=== PATIENT | male | born 1965 | race African-American/Black ===

== ENCOUNTER 2023-08-13 00:19 | Inpatient (IN) | payer BC ==
[2023-08-13 01:07] LABS: HEMATOCRIT 38.7 % (35.4-49); HEMOGLOBIN 13.2 GM/dL (11.7-16.9); MCH 30.1 pg (25.7-33.7); MCHC 34.1 g/dl (32.0-35.9); MEAN CELL VOLUME 88.3 fl (80-96); MEAN PLT VOLUME 7.4 fl (7.5-11.1); PLATELET COUNT 325 10^3/uL (134-434); RBC 4.39 M/mm3 (4.00-5.60); RDW 13.4 % (11.9-15.9); WHITE BLOOD COUNT 13.6 K/mm3 (4.0-10.0)
[2023-08-13 01:18] LABS: POTASSIUM 3.7 mmol/L (3.5-5.1)
[2023-08-13 01:19] LABS: CALCIUM 8.4 mg/dL (8.5-10.1)
[2023-08-13 01:20] LABS: ALBUMIN 3.1 g/dl (3.4-5.0); BLOOD UREA NITROGEN 17.6 mg/dL (7-18)
[2023-08-13 01:23] LABS: CREATININE 1.1 mg/dL (0.55-1.3)
[2023-08-13 01:25] LABS: BILIRUBIN,TOTAL 0.4 mg/dL (0.2-1)
[2023-08-13 02:48] LABS: INR 1.02 (0.83-1.09); PROTHROMBIN TIME (PATIENT) 11.5 SEC (9.7-13.0)
[2023-08-13 02:50] LABS: ACTIVATED PTT 28.1 SECONDS (25.2-36.5)
[2023-08-13] MEDS: SODIUM CHLORIDE 0.9% 500 ML INFUS.BAG IV ONE (03:51)
[2023-08-13 03:52] LABS: BASO % 0.2 % (0-2.0); HEMATOCRIT 33.6 % (35.4-49); HEMOGLOBIN 11.5 GM/dL (11.7-16.9); LYMPH % 16.9 % (8-40); MCH 30.2 pg (25.7-33.7); MCHC 34.3 g/dl (32.0-35.9); MEAN CELL VOLUME 88.2 fl (80-96); MEAN PLT VOLUME 7.4 fl (7.5-11.1); MONO % 6.3 % (3.8-10.2); NEUT % 76.6 % (42.8-82.8); PLATELET COUNT 273 10^3/uL (134-434); RBC 3.81 M/mm3 (4.00-5.60); RDW 13.4 % (11.9-15.9); WHITE BLOOD COUNT 13.7 K/mm3 (4.0-10.0)
[2023-08-13] MEDS ORDERED: PANTOPRAZOLE SODIUM 40 MG VIAL ONE (04:21)
[2023-08-13] MEDS: PANTOPRAZOLE SODIUM 40 MG VIAL IVPUSH ONE (04:29)
[2023-08-13 06:49] LABS: HEMATOCRIT 34.9 % (35.4-49); HEMOGLOBIN 12.1 GM/dL (11.7-16.9); MCH 30.4 pg (25.7-33.7); MCHC 34.6 g/dl (32.0-35.9); MEAN CELL VOLUME 87.9 fl (80-96); MEAN PLT VOLUME 7.5 fl (7.5-11.1); PLATELET COUNT 294 10^3/uL (134-434); RBC 3.97 M/mm3 (4.00-5.60); RDW 13.4 % (11.9-15.9); WHITE BLOOD COUNT 14.6 K/mm3 (4.0-10.0)
[2023-08-13 07:31] LABS: ALBUMIN 2.8 g/dl (3.4-5.0); BLOOD UREA NITROGEN 16.7 mg/dL (7-18); CALCIUM 7.9 mg/dL (8.5-10.1); MAGNESIUM 2.1 mg/dL (1.8-2.4)
[2023-08-13] MEDS: LACTATED RINGERS SOLUTION 1,000 ML/1,000 ML INFUS.BAG IV SCH ×3 (07:50→19:43)
[2023-08-13 08:11] LABS: CREATININE 0.9 mg/dL (0.55-1.3)
[2023-08-13 08:12] LABS: PHOSPHOROUS 2.8 mg/dL (2.5-4.9)
[2023-08-13 08:13] LABS: BILIRUBIN,TOTAL 0.2 mg/dL (0.2-1); TOT PROT 6.4 g/dl (6.4-8.2)
[2023-08-13] MEDS: INSULIN ASPART SLIDING SCALE (NOVOLOG) 1 VIAL SQ SCH (08:13)
[2023-08-13] MEDS: LOSARTAN POTASSIUM 25 MG TABLET PO SCH (11:00)
[2023-08-13] MEDS: amLODIPine BESYLATE 10 MG TABLET (FP) PO SCH (11:00)
[2023-08-13 12:44] LABS: BASO % 0.2 % (0-2.0); EOS % 0.1 % (0-4.5); HEMATOCRIT 35.5 % (35.4-49); HEMOGLOBIN 11.7 GM/dL (11.7-16.9); LYMPH % 27.7 % (8-40); MCH 29.7 pg (25.7-33.7); MCHC 33.1 g/dl (32.0-35.9); MEAN CELL VOLUME 89.8 fl (80-96); MEAN PLT VOLUME 7.5 fl (7.5-11.1); MONO % 5.5 % (3.8-10.2); NEUT % 66.5 % (42.8-82.8); PLATELET COUNT 323 10^3/uL (134-434); RBC 3.95 M/mm3 (4.00-5.60); RDW 13.3 % (11.9-15.9); WHITE BLOOD COUNT 16.1 K/mm3 (4.0-10.0)
[2023-08-13] MEDS ORDERED: PANTOPRAZOLE SODIUM 160 MG in SODIUM CHLORIDE 290 ML IVPB SCH (13:00)
[2023-08-13] MEDS: PANTOPRAZOLE SODIUM 80 MG in SODIUM CHLORIDE 100 ML IVPB SCH (13:30)
[2023-08-13] MEDS: PANTOPRAZOLE SODIUM 160 MG in SODIUM CHLORIDE 290 ML IVPB SCH ×2 (15:29→19:42)
[2023-08-13] MEDS ORDERED: INSULIN ASPART SLIDING SCALE (NOVOLOG) 1 VIAL SQ SCH (16:30)
[2023-08-13 18:30] LABS: BASO % 0.4 % (0-2.0); EOS % 0.1 % (0-4.5); HEMATOCRIT 37.7 % (35.4-49); HEMOGLOBIN 12.6 GM/dL (11.7-16.9); LYMPH % 24.4 % (8-40); MCH 29.3 pg (25.7-33.7); MCHC 33.4 g/dl (32.0-35.9); MEAN CELL VOLUME 87.9 fl (80-96); MEAN PLT VOLUME 7.5 fl (7.5-11.1); MONO % 6.8 % (3.8-10.2); NEUT % 68.3 % (42.8-82.8); PLATELET COUNT 235 10^3/uL (134-434); RBC 4.29 M/mm3 (4.00-5.60); RDW 13.9 % (11.9-15.9); WHITE BLOOD COUNT 13.8 K/mm3 (4.0-10.0)
[2023-08-13] MEDS: SODIUM CHLORIDE 1,000 ML IV STA (19:43)
[2023-08-13] MEDS: MUPIROCIN 2% TOPICAL OINTMENT FOR DECOLONIZATION NS SCH (21:44)
[2023-08-13] MEDS: CHLORHEXIDINE GLUCONATE 4% CLEANSER FOR DECOLONIZATION TP SCH (21:44)
[2023-08-13 23:46] LABS: HEMATOCRIT 31.5 % (35.4-49); HEMOGLOBIN 10.8 GM/dL (11.7-16.9); MCH 29.8 pg (25.7-33.7); MCHC 34.2 g/dl (32.0-35.9); MEAN CELL VOLUME 87.2 fl (80-96); MEAN PLT VOLUME 7.4 fl (7.5-11.1); PLATELET COUNT 257 10^3/uL (134-434); RBC 3.62 M/mm3 (4.00-5.60); RDW 13.9 % (11.9-15.9); WHITE BLOOD COUNT 12.7 K/mm3 (4.0-10.0)
[2023-08-14] MEDS: ONDANSETRON 4 MG/2 ML VIAL IVPUSH PRN (01:04)
[2023-08-14 07:03] LABS: POTASSIUM 4.1 mmol/L (3.5-5.1)
[2023-08-14 07:08] LABS: ALBUMIN 2.5 g/dl (3.4-5.0); CALCIUM 8.4 mg/dL (8.5-10.1); MAGNESIUM 2.1 mg/dL (1.8-2.4)
[2023-08-14 07:13] LABS: BILIRUBIN,TOTAL 1.6 mg/dL (0.2-1); TOT PROT 5.4 g/dl (6.4-8.2)
[2023-08-14 07:34] LABS: BASO % 0.2 % (0-2.0); EOS % 0.1 % (0-4.5); HEMATOCRIT 33.8 % (35.4-49); HEMOGLOBIN 11.4 GM/dL (11.7-16.9); LYMPH % 21.9 % (8-40); MCHC 33.8 g/dl (32.0-35.9); MEAN CELL VOLUME 85.6 fl (80-96); MONO % 5.8 % (3.8-10.2); PLATELET COUNT 234 10^3/uL (134-434); RBC 3.95 M/mm3 (4.00-5.60); WHITE BLOOD COUNT 15.9 K/mm3 (4.0-10.0)
[2023-08-14] MEDS ORDERED: PANTOPRAZOLE SODIUM 160 MG in SODIUM CHLORIDE 290 ML IVPB SCH (09:00)
[2023-08-14] MEDS ORDERED: LOSARTAN POTASSIUM 25 MG TABLET PO SCH (10:00)
[2023-08-14] MEDS ORDERED: amLODIPine BESYLATE 10 MG TABLET (FP) PO SCH (10:00)
[2023-08-14 11:59] LABS: BASO % 0.1 % (0-2.0); EOS % 0.2 % (0-4.5); HEMATOCRIT 31.7 % (35.4-49); HEMOGLOBIN 10.7 GM/dL (11.7-16.9); LYMPH % 26.9 % (8-40); MCH 29.2 pg (25.7-33.7); MCHC 33.7 g/dl (32.0-35.9); MEAN CELL VOLUME 86.4 fl (80-96); MEAN PLT VOLUME 7.5 fl (7.5-11.1); MONO % 5.2 % (3.8-10.2); NEUT % 67.6 % (42.8-82.8); PLATELET COUNT 215 10^3/uL (134-434); RBC 3.66 M/mm3 (4.00-5.60); RDW 15.2 % (11.9-15.9); WHITE BLOOD COUNT 15.1 K/mm3 (4.0-10.0)
[2023-08-14] MEDS: BISACODYL 5 MG TABLET.DR (FP) PO ONE (17:40)
[2023-08-14] MEDS: PEG 3350/NA SULF BICARB CL/KCL 4000 ML SOLN.RECON PO ONE (17:40)
[2023-08-14 19:31] LABS: BASO % 0.2 % (0-2.0); EOS % 0.4 % (0-4.5); HEMATOCRIT 30.2 % (35.4-49); HEMOGLOBIN 10.2 GM/dL (11.7-16.9); LYMPH % 27.1 % (8-40); MCH 29.2 pg (25.7-33.7); MCHC 33.9 g/dl (32.0-35.9); MEAN CELL VOLUME 86.1 fl (80-96); MEAN PLT VOLUME 7.7 fl (7.5-11.1); NEUT % 66.3 % (42.8-82.8); PLATELET COUNT 239 10^3/uL (134-434); WHITE BLOOD COUNT 15.8 K/mm3 (4.0-10.0)
[2023-08-14 23:54] LABS: HEMOGLOBIN 8.9 GM/dL (11.7-16.9); MCHC 34.1 g/dl (32.0-35.9); MEAN CELL VOLUME 85.1 fl (80-96); MEAN PLT VOLUME 7.3 fl (7.5-11.1); PLATELET COUNT 203 10^3/uL (134-434); RBC 3.06 M/mm3 (4.00-5.60); RDW 15.1 % (11.9-15.9)
[2023-08-15] MEDS ORDERED: MAGNESIUM SULF 50% (8.12 MEQ/2 ML-1 GM VIAL) ONE (00:20)
[2023-08-15] MEDS: METOPROLOL TARTRATE 5 MG/5 ML VIAL IVPUSH ONE (00:51)
[2023-08-15] MEDS: MAGNESIUM 1GM/D5W - 1 GM/100 ML IVPB IVPB ONE (00:59)
[2023-08-15] MEDS: LACTATED RINGERS SOLUTION 1000 ML INFUS.BAG IV ONE ×4 (00:59→18:31)
[2023-08-15] MEDS: dilTIAZem HCL 50 MG/10 ML - 10 ML VIAL IVPUSH ONE ×4 (01:04→16:01)
[2023-08-15] MEDS ORDERED: AMIODARONE IN DEXTROSE,ISO-OSM 150 MG/100 ML BAG ONE (01:34)
[2023-08-15] MEDS: AMIODARONE IN DEXTROSE,ISO-OSM 150 MG/100 ML BAG IVPB ONE (01:46)
[2023-08-15 01:51] LABS: POTASSIUM 3.5 mmol/L (3.5-5.1)
[2023-08-15 01:53] LABS: ALBUMIN 2.1 g/dl (3.4-5.0)
[2023-08-15 01:54] LABS: BLOOD UREA NITROGEN 18.7 mg/dL (7-18)
[2023-08-15 01:57] LABS: CREATININE 0.8 mg/dL (0.55-1.3)
[2023-08-15 01:58] LABS: BILIRUBIN,TOTAL 0.8 mg/dL (0.2-1); TOT PROT 4.7 g/dl (6.4-8.2)
[2023-08-15] MEDS: KCL 10 MEQ IVPB 10 MEQ/100 ML INFUS.BAG IVPB SCH (02:05)
[2023-08-15] MEDS ORDERED: AMIODARONE IN DEXTROSE,ISO-OSM 360 MG/200 ML BAG ONE (02:10)
[2023-08-15] MEDS ORDERED: AMIODARONE IN DEXTROSE,ISO-OSM 360 MG/200 ML BAG IV SCH (02:15)
[2023-08-15] MEDS: AMIODARONE IN DEXTROSE,ISO-OSM 360 MG/200 ML BAG IV SCH ×2 (02:20→08:49)
[2023-08-15 03:48] LABS: MAGNESIUM 2.4 mg/dL (1.8-2.4)
[2023-08-15 07:20] LABS: BASO % 0.4 % (0-2.0); EOS % 0.5 % (0-4.5); HEMATOCRIT 28.3 % (35.4-49); HEMOGLOBIN 9.7 GM/dL (11.7-16.9); LYMPH % 27.1 % (8-40); MCH 29.3 pg (25.7-33.7); MCHC 34.3 g/dl (32.0-35.9); MEAN CELL VOLUME 85.4 fl (80-96); MEAN PLT VOLUME 7.6 fl (7.5-11.1); PLATELET COUNT 206 10^3/uL (134-434); RBC 3.31 M/mm3 (4.00-5.60); RDW 14.2 % (11.9-15.9); WHITE BLOOD COUNT 12.3 K/mm3 (4.0-10.0)
[2023-08-15 07:29] LABS: POTASSIUM 3.5 mmol/L (3.5-5.1)
[2023-08-15 07:36] LABS: ALBUMIN 2.4 g/dl (3.4-5.0); CALCIUM 8.2 mg/dL (8.5-10.1)
[2023-08-15 07:37] LABS: BLOOD UREA NITROGEN 15.3 mg/dL (7-18); MAGNESIUM 2.2 mg/dL (1.8-2.4); PHOSPHOROUS 2.7 mg/dL (2.5-4.9)
[2023-08-15 07:38] LABS: CREATININE 0.9 mg/dL (0.55-1.3)
[2023-08-15 07:39] LABS: BILIRUBIN,TOTAL 1.5 mg/dL (0.2-1); TOT PROT 4.9 g/dl (6.4-8.2)
[2023-08-15] MEDS: METOPROLOL TARTRATE 5 MG/5 ML VIAL IVPUSH PRN (08:48)
[2023-08-15] MEDS: CALCIUM GLUCONATE 10% - 1,000 MG/10 ML VIAL IVPB ONE (11:34)
[2023-08-15] MEDS: LACTATED RINGERS SOLUTION 1,000 ML/1,000 ML INFUS.BAG IV STA ×2 (11:34→16:01)
[2023-08-15 13:22] VITALS: BMI 27.5
[2023-08-15] MEDS ORDERED: CALCIUM CHLORIDE 1 GM/10 ML *DISP.SYRIN ONE (15:03)
[2023-08-15] MEDS ORDERED: ETOMIDATE 20 MG/10 ML VIAL IVPUSH ONE (15:03)
[2023-08-15] MEDS ORDERED: NOREPINEPHRINE BITARTRATE 4 MG/4 ML ML IV ONE (15:04)
[2023-08-15] MEDS ORDERED: VASopressin 20 UNITS/ML VIAL IV ONE (15:04)
[2023-08-15] MEDS ORDERED: SUGAMMADEX SODIUM 200 MG/2 ML VIAL ONE (15:30)
[2023-08-15] MEDS ORDERED: MIDAZOLAM HCL 2 MG/2 ML SINGLE DOSE VIAL ONE (15:30)
[2023-08-15] MEDS ORDERED: FENTANYL CITRATE/PF 50 MCG/ML VIAL ONE (15:30)
[2023-08-15] MEDS: ACETAMINOPHEN 1000 MG/100 ML BAG IVPB ONE (17:58)
[2023-08-15 19:08] LABS: BASO % 0.2 % (0-2.0); EOS % 0.4 % (0-4.5); HEMATOCRIT 22.6 % (35.4-49); HEMOGLOBIN 7.6 GM/dL (11.7-16.9); LYMPH % 14.2 % (8-40); MCH 28.5 pg (25.7-33.7); MCHC 33.8 g/dl (32.0-35.9); MEAN CELL VOLUME 84.3 fl (80-96); MEAN PLT VOLUME 7.8 fl (7.5-11.1); MONO % 5.3 % (3.8-10.2); NEUT % 79.9 % (42.8-82.8); PLATELET COUNT 170 10^3/uL (134-434); RBC 2.68 M/mm3 (4.00-5.60); WHITE BLOOD COUNT 12.5 K/mm3 (4.0-10.0)
[2023-08-15 19:16] LABS: INR 1.22 (0.83-1.09); PROTHROMBIN TIME (PATIENT) 13.7 SEC (9.7-13.0)
[2023-08-15 19:19] LABS: ACTIVATED PTT 28.4 SECONDS (25.2-36.5)
[2023-08-15 20:59] LABS: BASO % 0.2 % (0-2.0); EOS % 0.2 % (0-4.5); HEMATOCRIT 22.5 % (35.4-49); HEMOGLOBIN 7.6 GM/dL (11.7-16.9); LYMPH % 15.8 % (8-40); MCH 28.3 pg (25.7-33.7); MCHC 33.8 g/dl (32.0-35.9); MEAN CELL VOLUME 83.7 fl (80-96); MEAN PLT VOLUME 8.2 fl (7.5-11.1); MONO % 5.5 % (3.8-10.2); NEUT % 78.3 % (42.8-82.8); PLATELET COUNT 165 10^3/uL (134-434); RBC 2.69 M/mm3 (4.00-5.60); RDW 15.2 % (11.9-15.9); WHITE BLOOD COUNT 13.3 K/mm3 (4.0-10.0)
[2023-08-15] MEDS: AMIODARONE HCL 200 MG TABLET PO SCH (21:32)
[2023-08-16 01:01] LABS: BASO % 0.2 % (0-2.0); EOS % 1.2 % (0-4.5); HEMATOCRIT 22.4 % (35.4-49); HEMOGLOBIN 7.8 GM/dL (11.7-16.9); LYMPH % 16.8 % (8-40); MCH 29.2 pg (25.7-33.7); MCHC 34.7 g/dl (32.0-35.9); MEAN CELL VOLUME 84.2 fl (80-96); MEAN PLT VOLUME 7.8 fl (7.5-11.1); MONO % 6.2 % (3.8-10.2); NEUT % 75.6 % (42.8-82.8); PLATELET COUNT 140 10^3/uL (134-434); RBC 2.66 M/mm3 (4.00-5.60); RDW 15.8 % (11.9-15.9)
[2023-08-16 05:14] LABS: BASO % 0.2 % (0-2.0); EOS % 1.8 % (0-4.5); HEMATOCRIT 21.3 % (35.4-49); HEMOGLOBIN 7.4 GM/dL (11.7-16.9); LYMPH % 19.5 % (8-40); MCH 29.3 pg (25.7-33.7); MCHC 34.7 g/dl (32.0-35.9); MEAN CELL VOLUME 84.4 fl (80-96); MEAN PLT VOLUME 7.9 fl (7.5-11.1); MONO % 5.2 % (3.8-10.2); NEUT % 73.3 % (42.8-82.8); PLATELET COUNT 138 10^3/uL (134-434); RBC 2.52 M/mm3 (4.00-5.60); WHITE BLOOD COUNT 10.6 K/mm3 (4.0-10.0)
[2023-08-16 05:35] LABS: POTASSIUM 3.3 mmol/L (3.5-5.1)
[2023-08-16 05:37] LABS: CALCIUM 7.3 mg/dL (8.5-10.1)
[2023-08-16 05:38] LABS: ALBUMIN 1.9 g/dl (3.4-5.0); BLOOD UREA NITROGEN 10.1 mg/dL (7-18); MAGNESIUM 1.8 mg/dL (1.8-2.4)
[2023-08-16 05:41] LABS: CREATININE 0.8 mg/dL (0.55-1.3); PHOSPHOROUS 3.5 mg/dL (2.5-4.9)
[2023-08-16 05:42] LABS: BILIRUBIN,TOTAL 1.3 mg/dL (0.2-1); TOT PROT 3.8 g/dl (6.4-8.2)
[2023-08-16 06:09] LABS: ALBUMIN 1.9 g/dl (3.4-5.0)
[2023-08-16 06:12] LABS: BILIRUBIN,DIRECT 0.3 mg/dL (0.0-0.2)
[2023-08-16 06:14] LABS: BILIRUBIN,TOTAL 1.4 mg/dL (0.2-1); TOT PROT 3.8 g/dl (6.4-8.2)
[2023-08-16] MEDS: ONDANSETRON 4 MG/2 ML VIAL IVPUSH ONE (07:31)
[2023-08-16] MEDS: TRIMETHOBENZAMIDE HCL 200MG/2ML INJ IM ONE (07:32)
[2023-08-16 08:10] LABS: CARCINOEMBRYONIC ANTIGEN 1.6 ng/mL (0.0-4.7)
[2023-08-16] MEDS ORDERED: ARTIFICIAL TEARS OPHTHALMIC DROPS OU PRN (09:00)
[2023-08-16] MEDS: POTASSIUM CHLORIDE ORAL LIQUID 20 MEQ/15 ML PO ONE (09:44)
[2023-08-16] MEDS: DEXTROSE 5%-LACTATED RINGERS 1,000 ML IV SCH (09:46)
[2023-08-16 09:54] LABS: HEMATOCRIT 24.6 % (35.4-49); HEMOGLOBIN 8.3 GM/dL (11.7-16.9); MCH 28.6 pg (25.7-33.7); MCHC 33.7 g/dl (32.0-35.9); PLATELET COUNT 160 10^3/uL (134-434); RBC 2.89 M/mm3 (4.00-5.60); RDW 15.3 % (11.9-15.9); WHITE BLOOD COUNT 12.3 K/mm3 (4.0-10.0)
[2023-08-16 15:55] LABS: HEMATOCRIT 26.8 % (35.4-49); HEMOGLOBIN 9.1 GM/dL (11.7-16.9); MCH 29.4 pg (25.7-33.7); MCHC 34.1 g/dl (32.0-35.9); MEAN CELL VOLUME 86.3 fl (80-96); MEAN PLT VOLUME 8.1 fl (7.5-11.1); PLATELET COUNT 160 10^3/uL (134-434); RDW 15.2 % (11.9-15.9); WHITE BLOOD COUNT 11.7 K/mm3 (4.0-10.0)
[2023-08-16] MEDS ORDERED: LACTATED RINGERS SOLUTION 1,000 ML/1,000 ML INFUS.BAG IV SCH (16:30)
[2023-08-16] MEDS: PIPERACILLIN/TAZOB 4.5 GM 4.5 GM in DEXTROSE 5%-WATER 100 ML IVPB SCH (16:38)
[2023-08-17 00:16] LABS: HEMATOCRIT 24.2 % (35.4-49); HEMOGLOBIN 8.6 GM/dL (11.7-16.9); MCH 30.1 pg (25.7-33.7); MCHC 35.5 g/dl (32.0-35.9); MEAN CELL VOLUME 84.9 fl (80-96); MEAN PLT VOLUME 7.5 fl (7.5-11.1); PLATELET COUNT 168 10^3/uL (134-434); RBC 2.85 M/mm3 (4.00-5.60); RDW 14.8 % (11.9-15.9); WHITE BLOOD COUNT 10.4 K/mm3 (4.0-10.0)
[2023-08-17 07:25] LABS: HEMATOCRIT 25.5 % (35.4-49); HEMOGLOBIN 8.8 GM/dL (11.7-16.9); MCH 29.7 pg (25.7-33.7); MCHC 34.6 g/dl (32.0-35.9); MEAN CELL VOLUME 85.8 fl (80-96); MEAN PLT VOLUME 8.1 fl (7.5-11.1); PLATELET COUNT 186 10^3/uL (134-434); RBC 2.98 M/mm3 (4.00-5.60); WHITE BLOOD COUNT 12.2 K/mm3 (4.0-10.0)
[2023-08-17 07:37] LABS: POTASSIUM 3.3 mmol/L (3.5-5.1)
[2023-08-17 07:43] LABS: ALBUMIN 2.2 g/dl (3.4-5.0); BLOOD UREA NITROGEN 6.4 mg/dL (7-18)
[2023-08-17 07:47] LABS: BILIRUBIN,TOTAL 1.2 mg/dL (0.2-1)
[2023-08-17 07:48] LABS: TOT PROT 4.6 g/dl (6.4-8.2)
[2023-08-17] MEDS: KCL 10 MEQ IVPB 10 MEQ/100 ML INFUS.BAG IVPB SCH (09:17)
[2023-08-17] MEDS: POTASSIUM CHLORIDE ORAL LIQUID 20 MEQ/15 ML PO ONE (09:18)
[2023-08-17 12:03] LABS: HIV INTERPRETATION NEGATIVE (NEGATIVE)
[2023-08-17] MEDS: PANTOPRAZOLE 40 MG TABLET PO ONE (12:51)
[2023-08-17] MEDS: POTASSIUM CHLORIDE ORAL LIQUID 20 MEQ/15 ML PO SCH (14:42)
[2023-08-17] MEDS ORDERED: ARTIFICIAL TEARS OPHTHALMIC DROPS OU PRN (15:23)
[2023-08-17] MEDS ORDERED: METOPROLOL TARTRATE 5 MG/5 ML VIAL IVPUSH PRN (15:23)
[2023-08-17] MEDS: ONDANSETRON 4 MG/2 ML VIAL IVPUSH PRN (15:55)
[2023-08-17] MEDS: PIPERACILLIN/TAZOB 3.375 GM 3.375 GM in DEXTROSE 5%-WATER - 50 ML IVPB SCH (17:19)
[2023-08-17] MEDS ORDERED: PIPERACILLIN/TAZOB 4.5 GM 4.5 GM in DEXTROSE 5%-WATER 100 ML IVPB SCH (18:00)
[2023-08-17] MEDS ORDERED: PIPERACILLIN/TAZOB 3.375 GM 3.375 GM in DEXTROSE 5%-WATER - 50 ML IVPB SCH (18:00)
[2023-08-17 18:55] LABS: BASO % 0.2 % (0-2.0); EOS % 0.6 % (0-4.5); HEMATOCRIT 29.1 % (35.4-49); HEMOGLOBIN 9.9 GM/dL (11.7-16.9); LYMPH % 15.9 % (8-40); MCH 29.9 pg (25.7-33.7); MCHC 34.2 g/dl (32.0-35.9); MEAN CELL VOLUME 87.6 fl (80-96); MONO % 6.5 % (3.8-10.2); NEUT % 76.8 % (42.8-82.8); PLATELET COUNT 242 10^3/uL (134-434); RBC 3.32 M/mm3 (4.00-5.60); RDW 14.7 % (11.9-15.9); WHITE BLOOD COUNT 17.9 K/mm3 (4.0-10.0)
[2023-08-17 19:13] LABS: POTASSIUM 3.6 mmol/L (3.5-5.1)
[2023-08-17 19:16] LABS: CALCIUM 7.9 mg/dL (8.5-10.1)
[2023-08-17 19:17] LABS: ALBUMIN 2.6 g/dl (3.4-5.0); BLOOD UREA NITROGEN 5.7 mg/dL (7-18)
[2023-08-17 19:20] LABS: CREATININE 1.2 mg/dL (0.55-1.3)
[2023-08-17 19:22] LABS: BILIRUBIN,TOTAL 1.1 mg/dL (0.2-1); TOT PROT 5.3 g/dl (6.4-8.2)
[2023-08-17] MEDS ORDERED: NOREPINEPHRINE BITARTRATE 4 MG/4 ML ML IV ONE (20:14)
[2023-08-17] MEDS: FENTANYL CITRATE/PF 50 MCG/ML VIAL IVPUSH ONE (20:24)
[2023-08-17] MEDS: LACTATED RINGERS SOLUTION 1,000 ML/1,000 ML INFUS.BAG IV STA (20:24)
[2023-08-17] MEDS: NOREPINEPHRINE BITARTRATE 4,000 MCG in DEXTROSE 5%-WATER - 496 ML IV SCH (20:25)
[2023-08-17] MEDS: LACTATED RINGERS SOLUTION 1000 ML INFUS.BAG IV SCH (20:27)
[2023-08-17] MEDS ORDERED: TRANEXAMIC ACID 1000 MG/10 ML VIAL IVPUSH ONE (20:56)
[2023-08-17 21:22] LABS: BASO % 0.1 % (0-2.0); EOS % 0.1 % (0-4.5); HEMATOCRIT 23.6 % (35.4-49); LYMPH % 8.5 % (8-40); MCH 29.6 pg (25.7-33.7); MCHC 33.7 g/dl (32.0-35.9); MEAN CELL VOLUME 87.9 fl (80-96); MEAN PLT VOLUME 8.3 fl (7.5-11.1); NEUT % 86.3 % (42.8-82.8); PLATELET COUNT 189 10^3/uL (134-434); RBC 2.69 M/mm3 (4.00-5.60); RDW 14.8 % (11.9-15.9)
[2023-08-17 21:30] LABS: INR 1.31 (0.83-1.09); PROTHROMBIN TIME (PATIENT) 14.7 SEC (9.7-13.0)
[2023-08-17 21:32] LABS: ACTIVATED PTT 27.6 SECONDS (25.2-36.5)
[2023-08-17] MEDS: NOREPINEPHRINE BITARTRATE/D5W 8 MG/250 ML BAG IVPB SCH (22:00)
[2023-08-17] MEDS: TRANEXAMIC ACID - 1,000 MG in SODIUM CHLORIDE 50 ML IVPB ONE (22:00)
[2023-08-17] MEDS: CHLORHEXIDINE GLUCONATE 4% CLEANSER FOR DECOLONIZATION TP SCH (22:18)
[2023-08-17] MEDS: MAGNESIUM 2GM/50ML STERILE WATER IVPB IVPB ONE (22:18)
[2023-08-17] MEDS: CALCIUM GLUC IN NACL, ISO-OSM 1 GM/50 ML BAG IVPB ONE (22:19)
[2023-08-17] MEDS: MUPIROCIN 2% TOPICAL OINTMENT FOR DECOLONIZATION NS SCH (22:20)
[2023-08-17] MEDS: AMIODARONE HCL 200 MG TABLET PO SCH (22:20)
[2023-08-17] MEDS: POTASSIUM PHOSPHATE 15 MM in DEXTROSE 5%-WATER - 100 ML IVPB ONE (22:44)
[2023-08-18] MEDS: HYDROmorphone HCl 2 MG/ML VIAL IVPUSH PRN (00:53)
[2023-08-18 02:10] LABS: HEMATOCRIT 27.2 % (35.4-49); HEMOGLOBIN 9.2 GM/dL (11.7-16.9); MCHC 33.7 g/dl (32.0-35.9); MEAN CELL VOLUME 89.1 fl (80-96); MEAN PLT VOLUME 7.9 fl (7.5-11.1); PLATELET COUNT 262 10^3/uL (134-434); RBC 3.06 M/mm3 (4.00-5.60); RDW 14.5 % (11.9-15.9); WHITE BLOOD COUNT 22.3 K/mm3 (4.0-10.0)
[2023-08-18 02:25] LABS: INR 1.3 (0.83-1.09); PROTHROMBIN TIME (PATIENT) 14.6 SEC (9.7-13.0)
[2023-08-18 02:27] LABS: ACTIVATED PTT 28.9 SECONDS (25.2-36.5)
[2023-08-18 02:28] LABS: POTASSIUM 4.4 mmol/L (3.5-5.1)
[2023-08-18 02:30] LABS: BLOOD UREA NITROGEN 9.4 mg/dL (7-18); CALCIUM 7.7 mg/dL (8.5-10.1); MAGNESIUM 2.4 mg/dL (1.8-2.4)
[2023-08-18 02:33] LABS: CREATININE 1.7 mg/dL (0.55-1.3); PHOSPHOROUS 7.4 mg/dL (2.5-4.9)
[2023-08-18] MEDS: VASopressin 40 UNITS/100 ML BAG IV SCH (02:55)
[2023-08-18] MEDS: PANTOPRAZOLE SODIUM 40 MG VIAL IVPUSH SCH (03:02)
[2023-08-18] MEDS: CALCIUM GLUC IN NACL, ISO-OSM 1 GM/50 ML BAG IVPB ONE ×2 (03:02→23:26)
[2023-08-18] MEDS: PEG 3350/NA SULF BICARB CL/KCL 4000 ML SOLN.RECON PO ONE (04:59)
[2023-08-18 05:16] LABS: ANISOCYTOSIS 3+; MACROCYTOSIS 0
[2023-08-18] MEDS ORDERED: TRANEXAMIC ACID 1000 MG/10 ML VIAL IVPUSH ONE (06:00)
[2023-08-18] MEDS: TRANEXAMIC ACID - 1,000 MG in SODIUM CHLORIDE 50 ML IVPB ONE (06:13)
[2023-08-18] MEDS ORDERED: ROCURONIUM BROMIDE 50 MG/5 ML SYRINGE ONE ×2 (07:19→09:50)
[2023-08-18] MEDS ORDERED: FENTANYL CITRATE/PF 50 MCG/ML VIAL ONE ×2 (07:19→11:19)
[2023-08-18] MEDS ORDERED: PROPOFOL 20 ML ONE (07:19)
[2023-08-18] MEDS ORDERED: MIDAZOLAM HCL 2 MG/2 ML SINGLE DOSE VIAL ONE ×3 (07:20→11:34)
[2023-08-18] MEDS ORDERED: GENTAMICIN SO4 80 MG/2 ML VIAL ONE (07:23)
[2023-08-18] MEDS ORDERED: VANCOMYCIN 1,000 MG VIAL (RESTRICTED TO ID ONLY) ONE (07:23)
[2023-08-18] MEDS ORDERED: BUPIVACAINE HCL/PF 0.5% (5MG/ML) 10 ML VIAL ONE (07:24)
[2023-08-18] MEDS ORDERED: THROMBIN (BOVINE) 5,000 UNIT VIAL TP ONE (07:24)
[2023-08-18] MEDS ORDERED: LIDOCAINE 1%/EPI 1:100000 (20 ML MULTI DOSE VIAL) ONE ×2 (07:24→07:30)
[2023-08-18] MEDS ORDERED: BUPIVACAINE LIPOSOME/PF (EXPAREL) 266 MG/20 ML VIAL ONE (07:24)
[2023-08-18] MEDS ORDERED: SUCCINYLCHOLINE CHLORIDE 200 MG/10 ML SYRINGE ONE (07:26)
[2023-08-18] MEDS: KCL 10 MEQ IVPB 10 MEQ/100 ML INFUS.BAG IVPB SCH (08:25)
[2023-08-18] MEDS: KCL 20 MEQ PREMIX BAG 20 MEQ/100 ML INFUS.BAG IVPB SCH (08:26)
[2023-08-18] MEDS ORDERED: EPINEPHrine 1:10,000 (P-F SYR) 1 MG/10 ML DISP.SYRIN ONE (08:49)
[2023-08-18 08:53] LABS: ARTERIAL BLD GAS O2 SATURATION 99.6 % (95-98); ARTERIAL BLOOD GAS BASE EXCESS -20.3 mmol/L (-2-2); ARTERIAL BLOOD GAS PO2 325.4 mmHg (80-100)
[2023-08-18 08:56] LABS: ARTERIAL BLOOD GAS pH 7.087 (7.350-7.450)
[2023-08-18] MEDS ORDERED: PHENYLEPHRINE HCL 10 MG/1 ML SINGLE DOSE VIAL ONE ×3 (09:28→16:46)
[2023-08-18 09:44] LABS: ARTERIAL BLD GAS O2 SATURATION 99.6 % (95-98); ARTERIAL BLOOD GAS BASE EXCESS -19.3 mmol/L (-2-2); ARTERIAL BLOOD GAS PO2 400.7 mmHg (80-100)
[2023-08-18 09:46] LABS: ALLENS TEST POSITIVE
[2023-08-18 09:50] LABS: ARTERIAL BLOOD GAS pH 7.021 (7.350-7.450)
[2023-08-18 09:54] LABS: HEMATOCRIT 30.3 % (35.4-49); HEMOGLOBIN 9.9 GM/dL (11.7-16.9); MCH 29.8 pg (25.7-33.7); MCHC 32.8 g/dl (32.0-35.9); MEAN CELL VOLUME 90.9 fl (80-96); MEAN PLT VOLUME 8.4 fl (7.5-11.1); PLATELET COUNT 130 10^3/uL (134-434); RBC 3.33 M/mm3 (4.00-5.60); RDW 14.6 % (11.9-15.9); WHITE BLOOD COUNT 20.2 K/mm3 (4.0-10.0)
[2023-08-18 10:01] LABS: INR 1.83 (0.83-1.09); PROTHROMBIN TIME (PATIENT) 20.3 SEC (9.7-13.0)
[2023-08-18] MEDS ORDERED: HYDROmorphone HCl 2 MG/ML VIAL ONE (11:20)
[2023-08-18] MEDS ORDERED: BENZOIN/ALOE VERA/STORAX/TOLU 58 ML BOTTLE ONE (11:24)
[2023-08-18] MEDS ORDERED: ePHEDrine SULFATE 50 MG/1 ML AMPULE ONE (11:49)
[2023-08-18] MEDS: LACTATED RINGERS SOLUTION 1000 ML INFUS.BAG IV ONE (12:45)
[2023-08-18] MEDS ORDERED: MIDAZOLAM IN 0.9 % SOD.CHLORID 1 MG/1 ML PLAST..BAG ONE (12:51)
[2023-08-18] MEDS ORDERED: MIDAZOLAM 100 MG/100 ML MG IVPB SCH (13:00)
[2023-08-18] MEDS: MIDAZOLAM IN 0.9 % SOD.CHLORID 100 MG/100 ML PLAST..BAG IVPB SCH (13:06)
[2023-08-18 13:31] LABS: HEMATOCRIT 28.3 % (35.4-49); HEMOGLOBIN 9.4 GM/dL (11.7-16.9); MCH 29.9 pg (25.7-33.7); MCHC 33.2 g/dl (32.0-35.9); MEAN CELL VOLUME 90.1 fl (80-96); MEAN PLT VOLUME 8.9 fl (7.5-11.1); PLATELET COUNT 142 10^3/uL (134-434); RBC 3.14 M/mm3 (4.00-5.60); RDW 14.3 % (11.9-15.9)
[2023-08-18 13:32] LABS: ARTERIAL BLD GAS O2 SATURATION 98.2 % (95-98); ARTERIAL BLOOD GAS BASE EXCESS -18.4 mmol/L (-2-2); ARTERIAL BLOOD GAS PO2 157.7 mmHg (80-100)
[2023-08-18 13:36] LABS: VENT MODE V/C; VENT RATE 18
[2023-08-18 13:37] LABS: ARTERIAL BLOOD GAS pH 7.076 (7.350-7.450)
[2023-08-18 13:39] LABS: INR 1.49 (0.83-1.09); PROTHROMBIN TIME (PATIENT) 16.6 SEC (9.7-13.0)
[2023-08-18 13:42] LABS: ACTIVATED PTT 43.3 SECONDS (25.2-36.5)
[2023-08-18] MEDS: SODIUM BICARBONATE 8.4% 50 MEQ/50 ML DISP.SYRIN IVPUSH SCH (13:46)
[2023-08-18 13:49] LABS: CHLORIDE 107 mmol/L (98-107); POTASSIUM 5.7 mmol/L (3.5-5.1); SODIUM 140 mmol/L (136-145)
[2023-08-18 13:51] LABS: CALCIUM 8.5 mg/dL (8.5-10.1)
[2023-08-18 13:52] LABS: ANION GAP 20 mmol/L (4-13); BLOOD UREA NITROGEN 13.2 mg/dL (7-18); CO2 14 mmol/L (21-32); GLUCOSE,RANDOM 277 mg/dL (74-106); MAGNESIUM 2.8 mg/dL (1.8-2.4)
[2023-08-18 13:55] LABS: CREATININE 3.2 mg/dL (0.55-1.3); SGOT/AST 237 U/L (15-37); SGPT/ALT 241 U/L (13-61)
[2023-08-18 13:56] LABS: TOT PROT 3.4 g/dl (6.4-8.2)
[2023-08-18 13:57] LABS: BILIRUBIN,TOTAL 0.9 mg/dL (0.2-1)
[2023-08-18 13:58] LABS: ALK PHOS 43 U/L (45-117)
[2023-08-18 14:05] LABS: LACTIC ACID 14.7 mmol/L (0.4-2.0)
[2023-08-18 14:19] LABS: ALBUMIN 1.7 g/dl (3.4-5.0); PHOSPHOROUS 10.3 mg/dL (2.5-4.9)
[2023-08-18] MEDS ORDERED: SODIUM CHLORIDE 0.45% 1,000 ML IV SCH (14:45)
[2023-08-18] MEDS: SODIUM CHLORIDE 0.45% 1,000 ML IV SCH ×2 (15:20→18:00)
[2023-08-18 15:37] LABS: HEMATOCRIT 29.2 % (35.4-49); HEMOGLOBIN 9.3 GM/dL (11.7-16.9); MCH 29.3 pg (25.7-33.7); MCHC 31.7 g/dl (32.0-35.9); MEAN CELL VOLUME 92.6 fl (80-96); MEAN PLT VOLUME 9.3 fl (7.5-11.1); PLATELET COUNT 120 10^3/uL (134-434); RBC 3.15 M/mm3 (4.00-5.60); RDW 14.4 % (11.9-15.9)
[2023-08-18 15:40] LABS: WHITE BLOOD COUNT 31.2 K/mm3 (4.0-10.0)
[2023-08-18] MEDS: MIDAZOLAM HCL 2 MG/2 ML SINGLE DOSE VIAL IVPUSH ONE (15:41)
[2023-08-18] MEDS: FENTANYL NS IVPB 500 MCG/100 ML BAG IVPB SCH (15:41)
[2023-08-18 15:57] LABS: ANISOCYTOSIS 0; CORRECTED WBC 28.11 K/mm3; MACROCYTOSIS 0
[2023-08-18 16:17] LABS: ARTERIAL BLD GAS O2 SATURATION 99.8 % (95-98); ARTERIAL BLOOD GAS BASE EXCESS -15.1 mmol/L (-2-2); ARTERIAL BLOOD GAS PO2 413.4 mmHg (80-100); ARTERIAL BLOOD GAS pH 7.194 (7.350-7.450)
[2023-08-18 16:21] LABS: VENT MODE V/AC; VENT RATE 18
[2023-08-18 16:31] LABS: LACTIC ACID 16.8 mmol/L (0.4-2.0)
[2023-08-18] MEDS: PHENYLEPHRINE NS PREMIX 50,000 MCG/500 ML BAG IVPB SCH (16:54)
[2023-08-18] MEDS ORDERED: SODIUM CHLORIDE 0.45% 1,000 ML with SODIUM BICARBONATE 8.4% - 50 MEQ IV SCH (17:11)
[2023-08-18] MEDS: SODIUM BICARBONATE 8.4% 50 MEQ/50 ML DISP.SYRIN IVPUSH ONE (17:31)
[2023-08-18 18:20] LABS: HEMATOCRIT 25.5 % (35.4-49); HEMOGLOBIN 8.4 GM/dL (11.7-16.9); LYMPH % 4.7 % (8-40); MCH 29.1 pg (25.7-33.7); MEAN CELL VOLUME 88.2 fl (80-96); MEAN PLT VOLUME 9.5 fl (7.5-11.1); MONO % 5.9 % (3.8-10.2); NEUT % 89.4 % (42.8-82.8); PLATELET COUNT 135 10^3/uL (134-434); RBC 2.89 M/mm3 (4.00-5.60); RDW 15.1 % (11.9-15.9)
[2023-08-18 18:25] LABS: WHITE BLOOD COUNT 30.8 K/mm3 (4.0-10.0)
[2023-08-18 18:40] LABS: POTASSIUM 5.1 mmol/L (3.5-5.1)
[2023-08-18 18:42] LABS: CALCIUM 7.8 mg/dL (8.5-10.1)
[2023-08-18 18:43] LABS: ALBUMIN 1.4 g/dl (3.4-5.0); BLOOD UREA NITROGEN 14.5 mg/dL (7-18)
[2023-08-18 18:44] LABS: ANISOCYTOSIS 2+; MACROCYTOSIS 0; OVALOCYTE 1+
[2023-08-18 18:46] LABS: CREATININE 3.8 mg/dL (0.55-1.3)
[2023-08-18 18:47] LABS: TOT PROT 3.1 g/dl (6.4-8.2)
[2023-08-18 18:48] LABS: BILIRUBIN,TOTAL 1.2 mg/dL (0.2-1)
[2023-08-18] MEDS: SODIUM CHLORIDE 0.45% 1,000 ML with SODIUM BICARBONATE 8.4% - 50 MEQ IV SCH ×2 (19:05→23:26)
[2023-08-18] MEDS: CHLORHEXIDINE GLUCONATE 4% CLEANSER FOR DECOLONIZATION TP SCH (21:33)
[2023-08-18] MEDS: MUPIROCIN 2% TOPICAL OINTMENT FOR DECOLONIZATION NS SCH (21:34)
[2023-08-18 21:45] LABS: ARTERIAL BLD GAS O2 SATURATION 98.6 % (95-98); ARTERIAL BLOOD GAS BASE EXCESS -17.9 mmol/L (-2-2); ARTERIAL BLOOD GAS PO2 158.8 mmHg (80-100)
[2023-08-18 21:47] LABS: HEMATOCRIT 25.7 % (35.4-49); HEMOGLOBIN 8.6 GM/dL (11.7-16.9); MCH 29.2 pg (25.7-33.7); MCHC 33.4 g/dl (32.0-35.9); MEAN CELL VOLUME 87.6 fl (80-96); MEAN PLT VOLUME 10.4 fl (7.5-11.1); PLATELET COUNT 143 10^3/uL (134-434); RBC 2.94 M/mm3 (4.00-5.60); RDW 15.2 % (11.9-15.9)
[2023-08-18 21:49] LABS: ARTERIAL BLOOD GAS pH 7.158 (7.350-7.450)
[2023-08-18 21:50] LABS: WHITE BLOOD COUNT 35.8 K/mm3 (4.0-10.0)
[2023-08-18 22:05] LABS: CHLORIDE 103 mmol/L (98-107); POTASSIUM 5.8 mmol/L (3.5-5.1); SODIUM 139 mmol/L (136-145)
[2023-08-18 22:06] LABS: ANION GAP 25 mmol/L (4-13); CALCIUM 7.2 mg/dL (8.5-10.1); CO2 11 mmol/L (21-32); GLUCOSE,RANDOM 181 mg/dL (74-106)
[2023-08-18 22:07] LABS: BLOOD UREA NITROGEN 15.3 mg/dL (7-18); MAGNESIUM 2.3 mg/dL (1.8-2.4)
[2023-08-18 22:10] LABS: CREATININE 4.2 mg/dL (0.55-1.3)
[2023-08-18 22:17] LABS: PHOSPHOROUS > 9.0 mg/dL (2.5-4.9)
[2023-08-18 22:30] LABS: LACTIC ACID 17.4 mmol/L (0.4-2.0)
[2023-08-18] MEDS: DEXTROSE 50%-WATER 25 GM/50 ML DISP.SYRIN IVPUSH ONE (23:26)
[2023-08-18] MEDS: INSULIN REGULAR HUMAN 100 UNITS/ML *VIAL IVPUSH ONE (23:26)
[2023-08-19 03:39] LABS: ARTERIAL BLD GAS O2 SATURATION 99.1 % (95-98); ARTERIAL BLOOD GAS BASE EXCESS -17.8 mmol/L (-2-2); ARTERIAL BLOOD GAS PO2 199.3 mmHg (80-100)
[2023-08-19 03:42] LABS: ARTERIAL BLOOD GAS pH 7.157 (7.350-7.450)
[2023-08-19 03:58] LABS: HEMATOCRIT 21.8 % (35.4-49); HEMOGLOBIN 7.3 GM/dL (11.7-16.9); MCH 29.3 pg (25.7-33.7); MCHC 33.3 g/dl (32.0-35.9); MEAN CELL VOLUME 88.1 fl (80-96); MEAN PLT VOLUME 10.6 fl (7.5-11.1); PLATELET COUNT 135 10^3/uL (134-434); RBC 2.48 M/mm3 (4.00-5.60); RDW 15.4 % (11.9-15.9)
[2023-08-19 03:59] LABS: CHLORIDE 103 mmol/L (98-107); POTASSIUM 5.9 mmol/L (3.5-5.1); SODIUM 137 mmol/L (136-145)
[2023-08-19 04:03] LABS: ANION GAP 24 mmol/L (4-13); BLOOD UREA NITROGEN 19.4 mg/dL (7-18); CO2 11 mmol/L (21-32); GLUCOSE,RANDOM 175 mg/dL (74-106); WHITE BLOOD COUNT 36.6 K/mm3 (4.0-10.0)
[2023-08-19 04:04] LABS: MAGNESIUM 2.1 mg/dL (1.8-2.4)
[2023-08-19 04:06] LABS: CREATININE 4.7 mg/dL (0.55-1.3)
[2023-08-19 04:07] LABS: BILIRUBIN,TOTAL 1.6 mg/dL (0.2-1)
[2023-08-19 04:08] LABS: ALK PHOS 53 U/L (45-117)
[2023-08-19 04:32] LABS: ALBUMIN 1.3 g/dl (3.4-5.0); PHOSPHOROUS 9.7 mg/dL (2.5-4.9); SGOT/AST 5208 U/L (15-37); SGPT/ALT 4736 U/L (13-61); TOT PROT 2.9 g/dl (6.4-8.2)
[2023-08-19] MEDS: HYDROCORTISONE SOD SUCCINATE 100 MG/2 ML VIAL IVPB SCH (04:32)
[2023-08-19] MEDS: CALCIUM GLUC IN NACL, ISO-OSM 1 GM/50 ML BAG IVPB ONE (04:35)
[2023-08-19] MEDS: INSULIN REGULAR HUMAN 100 UNITS/ML *VIAL IVPUSH ONE (04:36)
[2023-08-19] MEDS: DEXTROSE 50%-WATER 25 GM/50 ML DISP.SYRIN IVPUSH ONE (04:36)
[2023-08-19] MEDS ORDERED: SODIUM CHLORIDE 1,000 ML IV SCH (05:45)
[2023-08-19] MEDS: SODIUM CHLORIDE 1,000 ML with SODIUM BICARBONATE 8.4% - 150 MEQ IV SCH (05:48)
[2023-08-19] MEDS ORDERED: SODIUM CHLORIDE 250 ML IV PRN (08:02)
[2023-08-19] MEDS ORDERED: SODIUM BICARBONATE 8.4% 50 MEQ/50 ML DISP.SYRIN ONE (08:08)
[2023-08-19 08:20] LABS: ANISOCYTOSIS 2+; MACROCYTOSIS 0
[2023-08-19] MEDS: SODIUM BICARBONATE 8.4% 50 MEQ/50 ML DISP.SYRIN IVPUSH ONE ×3 (08:26→11:58)
[2023-08-19 08:49] LABS: HEMATOCRIT 19.8 % (35.4-49); MCH 29.3 pg (25.7-33.7); MCHC 33.3 g/dl (32.0-35.9); MEAN CELL VOLUME 87.9 fl (80-96); MEAN PLT VOLUME 10.7 fl (7.5-11.1); PLATELET COUNT 131 10^3/uL (134-434); RBC 2.25 M/mm3 (4.00-5.60); RDW 15.5 % (11.9-15.9)
[2023-08-19 08:53] LABS: HEMOGLOBIN 6.6 GM/dL (11.7-16.9); WHITE BLOOD COUNT 36.8 K/mm3 (4.0-10.0)
[2023-08-19 08:58] LABS: INR 3.36 (0.83-1.09); PROTHROMBIN TIME (PATIENT) 36.7 SEC (9.7-13.0)
[2023-08-19 09:01] LABS: ACTIVATED PTT 39.3 SECONDS (25.2-36.5)
[2023-08-19 09:08] LABS: CHLORIDE 100 mmol/L (98-107); POTASSIUM 5.8 mmol/L (3.5-5.1); SODIUM 134 mmol/L (136-145)
[2023-08-19 09:11] LABS: ALBUMIN 1.3 g/dl (3.4-5.0); ANION GAP 20 mmol/L (4-13); CO2 13 mmol/L (21-32); GLUCOSE,RANDOM 181 mg/dL (74-106)
[2023-08-19 09:14] LABS: CREATININE 5.2 mg/dL (0.55-1.3)
[2023-08-19 09:15] LABS: BILIRUBIN,TOTAL 1.7 mg/dL (0.2-1); TOT PROT 2.7 g/dl (6.4-8.2)
[2023-08-19 09:16] LABS: ALK PHOS 66 U/L (45-117)
[2023-08-19 09:22] LABS: ANISOCYTOSIS 1+; MACROCYTOSIS 0
[2023-08-19] MEDS: SODIUM CHLORIDE 0.9% 500 ML INFUS.BAG IV ONE (09:56)
[2023-08-19 09:59] LABS: CALCIUM 6.8 mg/dL (8.5-10.1); SGOT/AST 9104 U/L (15-37); SGPT/ALT 7044 U/L (13-61)
[2023-08-19] MEDS ORDERED: VANCOMYCIN/WATER FOR INJ (PEG) 1 GM/200 ML BAG IVPB ONE (10:00)
[2023-08-19] MEDS: SODIUM BICARBONATE 8.4% - 150 MEQ in DEXTROSE 5%-WATER - 1,000 ML IV SCH (10:30)
[2023-08-19 10:31] LABS: PHOSPHOROUS 9.2 mg/dL (2.5-4.9)
[2023-08-19] MEDS ORDERED: PHENYLEPHRINE HCL 10 MG/1 ML SINGLE DOSE VIAL ONE (10:36)
[2023-08-19] MEDS: SODIUM CHLORIDE 1,000 ML IV STA ×2 (10:38→12:00)
[2023-08-19] MEDS ORDERED: dilTIAZem HCL 50 MG/10 ML - 10 ML VIAL ONE (10:46)
[2023-08-19] MEDS ORDERED: AMIODARONE IN DEXTROSE,ISO-OSM 150 MG/100 ML BAG ONE (10:52)
[2023-08-19] MEDS ORDERED: CALCIUM GLUC IN NACL, ISO-OSM 1 GM/50 ML BAG IVPB ONE (11:00)
[2023-08-19] MEDS: AMIODARONE IN DEXTROSE 150 MG/100 ML PREMIX BAG IV ONE (11:00)
[2023-08-19] MEDS ORDERED: fentaNYL CITRATE 250 MCG/5 ML VIAL ONE (11:12)
[2023-08-19] MEDS: AMIODARONE IN DEXTROSE,ISO-OSM 360 MG/200 ML BAG IV SCH (11:20)
[2023-08-19 11:27] VITALS: BP 127/72; PULSE 117; RESP 24; TEMP 95.8
[2023-08-19] MEDS: PHYTONADIONE 10 MG/1 ML AMP IVPB ONE (11:29)
[2023-08-19] MEDS ORDERED: PHENYLEPHRINE NS PREMIX 50,000 MCG/500 ML BAG CVP SCH (11:30)
[2023-08-19 11:32] LABS: ARTERIAL BLD GAS O2 SATURATION 98.6 % (95-98); ARTERIAL BLOOD GAS BASE EXCESS -7.9 mmol/L (-2-2); ARTERIAL BLOOD GAS PO2 135.2 mmHg (80-100); ARTERIAL BLOOD GAS pH 7.331 (7.350-7.450)
[2023-08-19 11:35] LABS: VENT MODE A/C; VENT RATE 20
[2023-08-19 11:43] LABS: HEMATOCRIT 17.1 % (35.4-49); MCH 30.1 pg (25.7-33.7); MCHC 34.7 g/dl (32.0-35.9); MEAN CELL VOLUME 86.8 fl (80-96); PLATELET COUNT 121 10^3/uL (134-434); RBC 1.97 M/mm3 (4.00-5.60); RDW 14.8 % (11.9-15.9)
[2023-08-19 11:46] LABS: HEMOGLOBIN 5.9 GM/dL (11.7-16.9)
[2023-08-19] MEDS: fentaNYL CITRATE 250 MCG/5 ML VIAL IVPUSH ONE (11:58)
[2023-08-19 12:06] LABS: CHLORIDE 106 mmol/L (98-107); POTASSIUM 5.1 mmol/L (3.5-5.1); SODIUM 142 mmol/L (136-145)
[2023-08-19 12:07] LABS: ANISOCYTOSIS 1+; MACROCYTOSIS 0
[2023-08-19] MEDS ORDERED: EPINEPHrine 1:10,000 (P-F SYR) 1 MG/10 ML DISP.SYRIN ONE (12:10)
[2023-08-19 12:12] LABS: ALBUMIN 1.1 g/dl (3.4-5.0); ANION GAP 14 mmol/L (4-13); BLOOD UREA NITROGEN 19.9 mg/dL (7-18); CO2 22 mmol/L (21-32); GLUCOSE,RANDOM 189 mg/dL (74-106)
[2023-08-19 12:15] LABS: CREATININE 3.9 mg/dL (0.55-1.3)
[2023-08-19 12:16] LABS: TOT PROT 2.6 g/dl (6.4-8.2)
[2023-08-19 12:17] LABS: BILIRUBIN,TOTAL 1.8 mg/dL (0.2-1)
[2023-08-19 12:18] LABS: ALK PHOS 89 U/L (45-117)
[2023-08-19 13:04] LABS: CALCIUM 6.2 mg/dL (8.5-10.1); SGOT/AST 14031 U/L (15-37); SGPT/ALT 7486 U/L (13-61)
[2023-08-19] MEDS ORDERED: AMIODARONE IN DEXTROSE,ISO-OSM 360 MG/200 ML BAG IV SCH (23:00)
[2023-08-20] MEDS ORDERED: AMIODARONE HCL 200 MG TABLET PO SCH ×2 (22:00)
[2023-08-21] MEDS ORDERED: AMIODARONE HCL 200 MG TABLET PO SCH (10:00)
== END 2023-08-19 14:20 | disposition short-term general hospital (02) | DRG 329 ==
LOC: JER 00:19 → JERBED 05:44 → OBSVTOIN 06:59 → J8W 11:36 → J4W 12:42 → JICU 14:10
PROVIDERS: ADMIT Internal Medicine; ATTEND Internal Medicine Pulmonary Disease
PROC: 30233N1 Transfusion of Nonautologous Red Blood Cells into Peripheral Vein, Percutaneous Approach (ICD-10-PCS; principal; 2023-08-13)
PROC: 30233K1 Transfusion of Nonautologous Frozen Plasma into Peripheral Vein, Percutaneous Approach (ICD-10-PCS; 2023-08-13)
PROC: 0DJD8ZZ Inspection of Lower Intestinal Tract, Via Natural or Artificial Opening Endoscopic (ICD-10-PCS; 2023-08-15)
PROC: 0DJ08ZZ Inspection of Upper Intestinal Tract, Via Natural or Artificial Opening Endoscopic (ICD-10-PCS; 2023-08-15)
PROC: 0DJD8ZZ Inspection of Lower Intestinal Tract, Via Natural or Artificial Opening Endoscopic (ICD-10-PCS; 2023-08-15)
PROC: 05HN33Z Insertion of Infusion Device into Left Internal Jugular Vein, Percutaneous Approach (ICD-10-PCS; 2023-08-17)
PROC: B544ZZA Ultrasonography of Left Jugular Veins, Guidance (ICD-10-PCS; 2023-08-17)
PROC: 0DBK0ZZ Excision of Ascending Colon, Open Approach (ICD-10-PCS; 2023-08-18)
PROC: 0DBM0ZZ Excision of Descending Colon, Open Approach (ICD-10-PCS; 2023-08-18)
PROC: 4A133B1 Monitoring of Arterial Pressure, Peripheral, Percutaneous Approach (ICD-10-PCS; 2023-08-18)
PROC: 4A133J1 Monitoring of Arterial Pulse, Peripheral, Percutaneous Approach (ICD-10-PCS; 2023-08-18)
PROC: 5A1945Z Respiratory Ventilation, 24-96 Consecutive Hours (ICD-10-PCS; 2023-08-18)
PROC: 0D1B0Z4 Bypass Ileum to Cutaneous, Open Approach (ICD-10-PCS; 2023-08-18 08:00)
PROC: 30233R1 Transfusion of Nonautologous Platelets into Peripheral Vein, Percutaneous Approach (ICD-10-PCS; 2023-08-19)
PROC: 06HN33Z Insertion of Infusion Device into Left Femoral Vein, Percutaneous Approach (ICD-10-PCS; 2023-08-19)
PROC: B54CZZA Ultrasonography of Left Lower Extremity Veins, Guidance (ICD-10-PCS; 2023-08-19)
PROC: 5A1D70Z Performance of Urinary Filtration, Intermittent, Less than 6 Hours Per Day (ICD-10-PCS; 2023-08-19)
PROC: 05HM33Z Insertion of Infusion Device into Right Internal Jugular Vein, Percutaneous Approach (ICD-10-PCS; 2023-08-19)
PROC: B543ZZA Ultrasonography of Right Jugular Veins, Guidance (ICD-10-PCS; 2023-08-19)
DX: K57.33 Diverticulitis of large intestine without perforation or abscess with bleeding (principal); K72.00 Acute and subacute hepatic failure without coma; R57.8 Other shock; R57.0 Cardiogenic shock; D62 Acute posthemorrhagic anemia; N17.9 Acute kidney failure, unspecified; E87.20 Acidosis, unspecified; I10 Essential (primary) hypertension; J45.909 Unspecified asthma, uncomplicated; K64.4 Residual hemorrhoidal skin tags; K64.8 Other hemorrhoids; R73.03 Prediabetes; M54.32 Sciatica, left side; D72.829 Elevated white blood cell count, unspecified; R07.89 Other chest pain; I48.0 Paroxysmal atrial fibrillation; I95.9 Hypotension, unspecified; K57.30 Diverticulosis of large intestine without perforation or abscess without bleeding; K92.2 Gastrointestinal hemorrhage, unspecified; E87.5 Hyperkalemia
CPT/HCPCS: 36415; 36430; 36600; 71045-TC-FY; 71275-TC; 74174-TC; 76705-TC; 80048; 80053; 80076; 82272; 82378; 82803; 82962; 83036; 83605; 83735; 84100; 84484; 85025; 85027; 85384; 85610; 85730; 86301; 86704; 86705; 86803; 86850; 86900; 86901; 86922; 87040; 87045; 87046; 87340; 87389; 87517; 87635; 87902; 88307-TC; 93005; 93010; 93306-TC; 94002; 97116-GP; 97161-GP; 99285-25; G0378; J0131; J0282; J1644; J3490; P9017; P9034; P9037; P9038; P9058; Q9967